=== PATIENT | male | born 1950 | race Caucasian/White ===

== ENCOUNTER 2019-10-09 14:55 | Emergency (ER) | payer MEDICARE, OTHER ==
[~2019-10-09] VITALS: Ht 172.7 cm; Wt 77.1 kg
[~2019-10-09 14:55] MED LIST: ASPI325
== END 2019-10-09 15:35 | disposition home or self-care (01) ==
LOC: ER 14:55
DX: M54.2 Cervicalgia (principal); Z79.82 Long term (current) use of aspirin
CPT/HCPCS: 96372; 99282-25; J1885